=== PATIENT | female | born 1975 | race Caucasian/White ===

== ENCOUNTER 2016-06-25 20:47 | Observation (INO) | payer OTHER ==
--- NOTE | 2016-06-25 21:08 | UCPHY ---
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 She has been on clear liquid diet however the pain is persistently gotten worse. Loose stools no blood no diarrhea no vomiting. No fever. She denies chest pain or shortness of breath. She tells me this feels exactly the same way that when she had acute diverticulitis and was hospitalized for a few days a few years ago. currently pain is 6/10. Left lower quadrant. 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 Exam Constitutional triage nursing summary reviewed, vital signs reviewed, awake/ alert. Eyes normal conjunctivae and sclera, EOMI, PERRLA. HENT normal inspection, atraumatic, moist mucus membranes, no epistaxis, neck supple/ no meningismus, no raccoon eyes. Respiratory clear to auscultation bilaterally, normal breath sounds, no respiratory distress, no wheezing. Cardiovascular rate normal, regular rhythm, no murmur, no edema, distal pulses normal. Gastrointestinal mild tenderness to palpation left lower quadrant , no rebound , no guarding, normal bowel sounds, no distension, no pulsatile mass. Genitourinary no CVA tenderness. Musculoskeletal no midline vertebral tenderness, full range of motion, no calf swelling, no tenderness of extremities, no meningismus, good pulses, neurovascularly intact. Skin pink, warm, & dry, no rash, skin atraumatic. Neurologic awake, alert and oriented x 3, AAOx3, moves all 4 extremities equally, motor intact, sensory intact, CN II-XII intact, normal cerebellar, normal vision, normal speech. Psychiatric normal mood/affect. Heme/Lymph/Immune no lymphadenopathy. Differential diagnosis includes but is not limited to and in no particular order : Bowel obstruction, appendicitis, gallbladder disease, diverticulitis, colitis , enteritis, perforated viscus, gastritis, GERD, esophagitis, urinary tract infection, pyelonephritis, kidney stones Medical Decision Making: plan for this patient IV will be established, patient received IV fluid bolus 1 L normal saline, check blood work including abdominal labs lactic acid, i-STAT creatinine, patient need a CT scan abdomen pelvis with IV contrast rule out acute diverticulitis, colitis. Re-evaluation: 2241: re-evaluated this patient this time she is resting comfortably I went over CT results with her shows acute diverticulitis. There is no micro perforation there is no abscess, is not as large as last episode of diverticulitis. After further discussion with the patient she would feel more comfortable with IV fluids bowel rest and being admitted to the hospital overnight for acute diverticulitis. She does understand she has uncomplicated diverticulitis I did offer her to go home however she is not comfortable this plan. 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 She does not have perforation. Plan is to admit her hospitalist service acute diverticulitis bowel rest private vehicle transport. Patient has been accepted by Dr. Smith the hospitalist service. Patient to go to room [facility]. [address] [place] [address]. She will be going by private vehicle. No IV antibiotics were given during this visit she will get antibiotics upon arrival. Dr. Smith to be paged when patient arrives. Source: Patient - Medical/Surgical History Hx Asthma: No Hx Chronic Respiratory Disease: No Hx Diabetes: No Hx Cardiac Disease: No Hx Renal Disease: No Hx Cirrhosis: No Hx Alcoholism: No Hx HIV/AIDS: No Hx Splenectomy or Spleen Trauma: No Other PMH: C-SECT X3 - Family History Significant Family History: No pertinent family hx - Social History Smoking Status: Never smoked Constitutional: Initial Vital Signs Temperature (C) 36.6 C 06/25/16 21:00 Heart Rate 77 06/25/16 21:00 Respiratory Rate 16 06/25/16 21:00 Blood Pressure 127/50 H 06/25/16 21:00 O2 Sat (%) 99 06/25/16 21:00 O2 Delivery Mode Room Air Allergies/Adverse Reactions: Sulfa (Sulfonamide Antibiotics) Allergy (Unknown, Verified 06/25/16 21:33) Home Medications: Medication Instructions Recorded NK [No Known Home Meds] 06/25/16 Medical Decision Making - Data Points Laboratory Results: Laboratory Results 06/25/16 21:20 06/25/16 21:20 06/25/16 06/25/16 06/25/16 22:05 22:05 21:25 WBC RBC Hgb POC Hgb Hct POC Hct MCV MCH MCHC RDW Plt Count MPV Neut % (Auto) Lymph % (Auto) Harvey % (Auto) Eos % (Auto) Baso % (Auto) Nucleat RBC Rel Count Absolute Neuts (auto) Absolute Lymphs (auto) Absolute Monos (auto) Absolute Eos (auto) Absolute Basos (auto) Absolute Nucleated RBC Immature Gran % Immature Gran # PT 13.1 SEC SEC (12.0-15.0) INR 1.02 (0.83-1.16) APTT 30.1 SEC SEC (23.0-38.0) VBG Lactic Acid 0.6 mmol/L L mmol/L (0.7-2.1) POC Sodium Sodium POC Potassium Potassium POC Chloride Chloride Carbon Dioxide Anion Gap POC BUN BUN Creatinine POC Creatinine Estimated GFR Glucose POC Glucose Calcium Total Bilirubin Conjugated Bilirubin Unconjugated Bilirubin AST ALT Alkaline Phosphatase Total Protein Albumin Lipase Beta HCG, Qual Urine Color PALE YELLOW Urine Appearance CLEAR Urine pH 5.5 (5.0-7.5) Ur Specific Cromwell <= 1.005 (1.002-1.030) Urine Protein NEGATIVE (NEGATIVE) Urine Ketones NEGATIVE (NEGATIVE) Urine Blood TRACE H (NEGATIVE) Urine Nitrate NEGATIVE (NEGATIVE) Urine Bilirubin NEGATIVE (NEGATIVE) Urine Urobilinogen 0.2 EU EU (0.2-1.0) Ur Leukocyte Esterase NEGATIVE (NEGATIVE) Urine RBC OCCASIONAL /hpf /hpf (0-3) Urine WBC NONE SEEN /hpf /hpf (0-3) Ur Epithelial Cells TRACE /lpf /lpf (NONE-1+) Ur Culture Indicated? NOT INDICATED (NI) Urine Glucose NEGATIVE (NEGATIVE) 06/25/16 06/25/16 06/25/16 21:20 21:20 21:20 WBC RBC Hgb POC Hgb 14.6 gm/dL gm/dL (12.3-15.9) Hct POC Hct 43 % % (35.5-47.5) MCV MCH MCHC RDW Plt Count MPV Neut % (Auto) Lymph % (Auto) Harvey % (Auto) Eos % (Auto) Baso % (Auto) Nucleat RBC Rel Count Absolute Neuts (auto) Absolute Lymphs (auto) Absolute Monos (auto) Absolute Eos (auto) Absolute Basos (auto) Absolute Nucleated RBC Immature Gran % Immature Gran # PT INR APTT VBG Lactic Acid POC Sodium 141 mEq/L mEq/L (134-144) Sodium 140 mEq/L mEq/L (134-144) POC Potassium 3.6 mEq/L mEq/L (3.3-5.0) Potassium 3.7 mEq/L mEq/L (3.5-5.2) POC Chloride 103 mEq/L mEq/L (96-108) Chloride 100 mEq/L mEq/L (97-110) Carbon Dioxide 24 mEq/l mEq/l (22-31) Anion Gap 16 mEq/L mEq/L (8-16) POC BUN 10 mg/dL mg/dL (7-23) BUN 11 mg/dL mg/dL (7-23) Creatinine 0.8 mg/dL mg/dL (0.6-1.0) POC Creatinine 0.8 mg/dL mg/dL (0.6-1.2) Estimated GFR > 60 Glucose 90 mg/dL mg/dL (70-100) POC Glucose 94 mg/dL mg/dL (70-100) Calcium 9.5 mg/dL mg/dL (8.5-10.4) Total Bilirubin 0.7 mg/dL mg/dL (0.1-1.4) Conjugated Bilirubin 0.2 mg/dL mg/dL (0.0-0.5) Unconjugated Bilirubin 0.5 mg/dL mg/dL (0.0-1.1) AST 20 IU/L IU/L (14-46) ALT 28 IU/L IU/L (9-52) Alkaline Phosphatase 58 IU/L IU/L (38-126) Total Protein 7.2 g/dL g/dL (6.3-8.2) Albumin 4.4 g/dL g/dL (3.5-5.0) Lipase 62.0 IU/L IU/L (23-300) Beta HCG, Qual NEGATIVE Urine Color Urine Appearance Urine pH Ur Specific Cromwell Urine Protein Urine Ketones Urine Blood Urine Nitrate Urine Bilirubin Urine Urobilinogen Ur Leukocyte Esterase Urine RBC Urine WBC Ur Epithelial Cells Ur Culture Indicated? Urine Glucose 06/25/16 21:20 WBC 7.78 10^3/uL 10^3/uL (3.80-9.50) RBC 4.48 10^6/uL 10^6/uL (4.18-5.33) Hgb 14.1 g/dL g/dL (12.6-16.3) POC Hgb Hct 40.6 % % (38.0-47.0) POC Hct MCV 90.6 fL fL (81.5-99.8) MCH 31.5 pg pg (27.9-34.1) MCHC 34.7 g/dL g/dL (32.4-36.7) RDW 12.9 % % (11.5-15.2) Plt Count 203 10^3/uL 10^3/uL (150-400) MPV 9.6 fL fL (8.7-11.7) Neut % (Auto) 68.1 % % (39.3-74.2) Lymph % (Auto) 21.9 % % (15.0-45.0) Harvey % (Auto) 7.2 % % (4.5-13.0) Eos % (Auto) 2.2 % % (0.6-7.6) Baso % (Auto) 0.3 % % (0.3-1.7) Nucleat RBC Rel Count 0.0 % % (0.0-0.2) Absolute Neuts (auto) 5.31 10^3/uL 10^3/uL (1.70-6.50) Absolute Lymphs (auto) 1.70 10^3/uL 10^3/uL (1.00-3.00) Absolute Monos (auto) 0.56 10^3/uL 10^3/uL (0.30-0.80) Absolute Eos (auto) 0.17 10^3/uL 10^3/uL (0.03-0.40) Absolute Basos (auto) 0.02 10^3/uL 10^3/uL (0.02-0.10) Absolute Nucleated RBC 0.00 10^3/uL 10^3/uL (0-0.01) Immature Gran % 0.3 % % (0.0-1.1) Immature Gran # 0.02 10^3/uL 10^3/uL (0.00-0.10) PT INR APTT VBG Lactic Acid POC Sodium Sodium POC Potassium Potassium POC Chloride Chloride Carbon Dioxide Anion Gap POC BUN BUN Creatinine POC Creatinine Estimated GFR Glucose POC Glucose Calcium Total Bilirubin Conjugated Bilirubin Unconjugated Bilirubin AST ALT Alkaline Phosphatase Total Protein Albumin Lipase Beta HCG, Qual Urine Color Urine Appearance Urine pH Ur Specific Cromwell Urine Protein Urine Ketones Urine Blood Urine Nitrate Urine Bilirubin Urine Urobilinogen Ur Leukocyte Esterase Urine RBC Urine WBC Ur Epithelial Cells Ur Culture Indicated? Urine Glucose Point of Care Test Results: 06/25/16 21:20 POC Sodium 141 POC Potassium 3.6 POC Chloride 103 POC BUN 10 POC Creatinine 0.8 POC Glucose 94 Departure - Departure Disposition: [facility] Inpatient Acute Clinical Impression: Acute diverticulitis Condition: Fair Additional Instructions: 1. Go directly to [facility]. Do not go home. 2. You have a room reserve the [facility] his room 157. Please check in up front Referrals: Suha Reynolds MD [Primary Care Provider] - As per Instructions - PQRS PQRS Measurement: n/a
[2016-06-25] MEDS ORDERED: NS 1,000 ML IV ONE (21:09)
[2016-06-25] MEDS ORDERED: IOPAMIDOL (ISOVUE-300) 100 ML BTL IV ONE (21:21)
[2016-06-25 21:26] LABS: % IMMATURE GRANULYOCYTES 0.3 % (0.0-1.1); ABSOLUTE IMMATURE GRANULOCYTES 0.02 10^3/uL (0.00-0.10); ADD DIFF? NO; ADD MORPH? NO; ADD SCAN? NO; ATYPICAL LYMPHOCYTE FLAG 10 (0-99); FRAGMENT RBC FLAG 0 (0-99); HEMATOCRIT 40.6 % (38.0-47.0); HEMOGLOBIN 14.1 g/dL (12.6-16.3); LEFT SHIFT FLG 0 (0-99); LIPEMIA HEMOLYSIS FLAG 90 (0-99); MEAN CELL HEMOGLOBIN 31.5 pg (27.9-34.1); MEAN CELL HEMOGLOBIN CONCENTR. 34.7 g/dL (32.4-36.7); MEAN CELL VOLUME 90.6 fL (81.5-99.8); MEAN PLATELET VOLUME 9.6 fL (8.7-11.7); PLATELET CLUMPS FLAG 0 (0-99); PLATELET COUNT 203 10^3/uL (150-400); RED BLOOD CELL COUNT 4.48 10^6/uL (4.18-5.33); RED CELL DISTRIBUTION WIDTH 12.9 % (11.5-15.2)
[2016-06-25 21:32] LABS: LEUKOCYTE ESTERASE,URINE NEGATIVE (NEGATIVE); NITRITE,URINE NEGATIVE (NEGATIVE); PH,URINE 5.5 (5.0-7.5)
[2016-06-25 21:33] LABS: COLOR PALE YELLOW
[2016-06-25 21:39] LABS: RBC,URINE OCCASIONAL /hpf (0-3); WBC,URINE NONE SEEN /hpf (0-3)
[2016-06-25 21:42] LABS: ALANINE AMINOTRANSFERASE 28 IU/L (9-52); ALBUMIN 4.4 g/dL (3.5-5.0); ALKALINE PHOSPHATASE 58 IU/L (38-126); ANION GAP 16 mEq/L (8-16); ASPARTATE AMINOTRANSFERASE 20 IU/L (14-46); BILIRUBIN,TOTAL 0.7 mg/dL (0.1-1.4); BILIRUBIN-CONJUGATED 0.2 mg/dL (0.0-0.5); BILIRUBIN-UNCONJUGATED 0.5 mg/dL (0.0-1.1); CALCIUM 9.5 mg/dL (8.5-10.4); CARBON DIOXIDE 24 mEq/l (22-31); CHLORIDE 100 mEq/L (97-110); CREATININE 0.8 mg/dL (0.6-1.0); GLOMERULAR FILTRATION RATE > 60; GLUCOSE 90 mg/dL (70-100); POTASSIUM 3.7 mEq/L (3.5-5.2); SODIUM 140 mEq/L (134-144); TOTAL PROTEIN 7.2 g/dL (6.3-8.2)
[2016-06-25 22:18] LABS: INR 1.02 (0.83-1.16); PROTIME(PATIENT) 13.1 SEC (12.0-15.0)
[2016-06-25 22:19] LABS: APTT 30.1 SEC (23.0-38.0)
[2016-06-25] MEDS ORDERED: CIPROFLOXACIN 400 MG/DEXTROSE 200 ML IV ONE (22:42)
[2016-06-25] MEDS ORDERED: ONDANSETRON 4 MG/2 ML VIAL IVP PRN (23:53)
[2016-06-25] MEDS ORDERED: HYDROmorphONE/DILAUDID 1 MG/ML SYR IVP PRN (23:53)
[2016-06-25] MEDS ORDERED: ACETAMINOPHEN 325 MG TAB PO PRN (23:53)
[2016-06-25] MEDS ORDERED: ONDANSETRON DISINTEGRATING 4 MG TAB PO PRN (23:53)
[2016-06-26] MEDS: ERTAPENEM 1 GM in NS 100 ML IV SCH ×2 (00:28→13:04)
--- NOTE | 2016-06-26 00:33 | GHP ---
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 She presented to Urgent Care. She had a prev ious episode of descending colon and sigmoid diverticulitis in 2013. It was not complicated with ab scess or perforation. It required a couple of nights in the hospital. She had similar symptoms. She had subsequent colonoscopy, which showed diverticula of the sigmoid and descending colon. She h as a family history of diverticulitis, as well. She said she eats a lot of vegetables, takes Metamucil daily. She has normal bowel movements. She had a small bowel movement today. She has not had fever or chills. She has had left lower quadrant pain. She thought it would get better, but it did not and so she sought care. She drove herself o maty here today. She has had no nausea or vomiting. No cough, no sputum. No nausea, vomiting, diar katharine. REVIEW OF SYSTEMS: Complete 10-point review of systems conducted, negative except as noted in the H PI. PAST MEDICAL HISTORY: 1. Diverticulitis. 2. She has had x2 with 2 healthy children. 3. She had some superficial phlebitis during her pregnancies. ALLERGIES: Sulfa. MEDICATIONS: At home none. 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 Rare alcohol. No tobacco. She has 3 children. FAMILY HISTORY: Notable for her father over the summer of brain cancer. Her mother's family h as Alzheimer and diverticulitis as mentioned. PHYSICAL EXAM: VITAL SIGNS: Temp 36.6, blood pressure 127/50, pulse 77, breathing 16 times a minut e, 99% on room air. GENERAL: No acute distress. HEENT: Sclerae anicteric. Oropharynx clear. Mu cous membranes moist. NECK: Supple. No lymphadenopathy or JVD. LUNGS: Clear to auscultation elicia aterally. HEART: S1, S2. ABDOMEN: Soft. There is some left lower quadrant tenderness. There is a bit of left lower quadrant sensation. When I shake the bed, there are hypoactive bowel sounds. There is no guarding. EXTREMITIES: Calves are nontender. SKIN: Without rash. LOWER EXTREMITIES: Without edema. NEUROLOGIC: Nonfocal. LABORATORY DATA: White count 7.8, hematocrit 40, platelets are 203,000. INR is 1. Venous lactate is 0.6, sodium 140, potassium 3.7, chloride 100, bicarb 24, BUN 11, creatinine 0.8. LFTs normal. B eta HCG normal. Lipase normal. UA is unremarkable. CT images reviewed and interpreted by me, show s sigmoid diverticulitis without free air or abscess. I have discussed the case with . ASSESSMENT AND PLAN: A 41-year-old female with second episode of diverticulitis. 1. Diverticulitis. This appears to be uncomplicated on the basis of physical exam and CAT scan, al though on her exam does have possibly some rebound. We will follow for now, give her IV fluids, larissa ar liquid diet, and ertapenem. Cipro was ordered in Urgent Care, but not given. I will call Geoffrey Bolton in the morning to see her regarding consideration of possible elective surgery. 2. Abdominal pain. Will give her some IV narcotics. 3. Prophylaxis. Given her history of superficial thrombophlebitis venous thromboembolism prophylax is is indicated. 4. Disposition. Inpatient status. I anticipate greater than 2 midnights. /[id number]/MODL
[2016-06-26 04:57] LABS: % IMMATURE GRANULYOCYTES 0.2 % (0.0-1.1); ABSOLUTE IMMATURE GRANULOCYTES 0.01 10^3/uL (0.00-0.10); ADD DIFF? NO; ADD MORPH? NO; ADD SCAN? NO; ATYPICAL LYMPHOCYTE FLAG 10 (0-99); FRAGMENT RBC FLAG 0 (0-99); HEMATOCRIT 38.1 % (38.0-47.0); HEMOGLOBIN 12.9 g/dL (12.6-16.3); LEFT SHIFT FLG 0 (0-99); LIPEMIA HEMOLYSIS FLAG 90 (0-99); MEAN CELL HEMOGLOBIN 31.6 pg (27.9-34.1); MEAN CELL HEMOGLOBIN CONCENTR. 33.9 g/dL (32.4-36.7); MEAN CELL VOLUME 93.4 fL (81.5-99.8); MEAN PLATELET VOLUME 9.9 fL (8.7-11.7); PLATELET CLUMPS FLAG 0 (0-99); PLATELET COUNT 173 10^3/uL (150-400); RED BLOOD CELL COUNT 4.08 10^6/uL (4.18-5.33); RED CELL DISTRIBUTION WIDTH 12.7 % (11.5-15.2)
[2016-06-26 05:27] LABS: ANION GAP 6 mEq/L (8-16); CALCIUM 8.6 mg/dL (8.5-10.4); CARBON DIOXIDE 24 mEq/l (22-31); CHLORIDE 111 mEq/L (97-110); CREATININE 0.7 mg/dL (0.6-1.0); GLOMERULAR FILTRATION RATE > 60; GLUCOSE 89 mg/dL (70-100); POTASSIUM 4.1 mEq/L (3.5-5.2); SODIUM 141 mEq/L (134-144)
[2016-06-26] MEDS: NS 1,000 ML IV SCH ×2 (07:14→10:15)
[2016-06-26] MEDS ORDERED: ENOXAPARIN 40 MG/0.4 ML SYR SC SCH (09:00)
--- NOTE | 2016-06-26 15:31 | SOAPPROG ---
SOAP Progress Note Assessment/Plan: Assessment/Plan: 41 Y F with second episode of diverticulitis. Full consult note to follow. Continue IV antibiotics and clear liquid diet. No fever or WBC elevation. +pain, controlled. Will continue to observe. Optimistic that she will improve with antibiotics. Due to recurrence and age recommend eventual lap assisted sigmoid colectomy. We discussed this bedside today with her mother present. 06/26/16 15:28 Objective: Vital Signs Temp Pulse Resp BP Pulse Ox 36.6 C 68 16 93/57 L 96 06/26/16 12:26 06/26/16 12:26 06/26/16 12:26 06/26/16 12:26 06/26/16 12:26 Laboratory Results 06/26/16 04:48 06/26/16 04:48 06/25/16 06/26/16 06/27/16 05:59 05:59 05:59 Intake Total 1250 1500 Output Total 550 2400 Balance 700 -900 PT 13.1 SEC (12.0-15.0) 06/25/16 22:05 INR 1.02 (0.83-1.16) 06/25/16 22:05 ICD10 Worksheet Patient Problems: Problems Problem Status Onset Acute diverticulitis Acute Diverticulitis large intestine Acute
[2016-06-26] MEDS ORDERED: IBUPROFEN 200 MG TAB PO PRN (16:03)
[2016-06-26 16:29] VITALS: TEMP 97.7
--- NOTE | 2016-06-26 17:44 | PDDCSUM ---
Discharge Summary Discharge Summary: DISCHARGE SUMMARY FOLLOW-UP ITEMS: Schedule outpatient surgical follow-up DATE OF ADMISSION: 06/25/2016 DATE OF DISCHARGE: 06/26/2016 DISCHARGE DIAGNOSES: 1. Acute diverticulitis CONSULTATIONS: General surgery by Dr. Bolton PROCEDURES / IMAGING: CT of the abdomen demonstrating distal descending colon and sigmoid diverticulitis without abscess formation CHIEF COMPLAINT: Acute abdominal pain SUBJECTIVE: Abdominal pain has significantly improved, patient is able to ambulate without any discomfort PHYSICAL EXAM ON DISCHARGE: Systolic blood pressure 1/20, heart rate 60, afebrile overnight, satting well on room air, abdomen is soft and only mildly tender in the left lower quadrant without any guarding, bowel sounds are present, heart regular rhythm and regular rate, lungs are clear to auscultation bilaterally LABS ON DISCHARGE: Blood cell count 5300, hemoglobin 12.9, creatinine 0.7, liver panel unremarkable , lactic acid normal, urinalysis unremarkable, potassium 4.1 HOSPITAL COURSE BY PROBLEM: 1. Acute diverticulitis. Evidenced by distal descending colon inflammation and no evidence of abscess on CT imaging with associated left lower quadrant pain. Patient received IV fluids, was made NPO, received IV antibiotics, received IV pain medications. She clinically improved and was tolerating bland oral solid diet at time of discharge. She was ambulating without any pain. She was seen in consultation by General surgery who recommended outpatient comma elective lap partial colectomy once her condition improves. She received 2 days of IV antibiotics. She is being discharged home on 8 subsequent days of oral antibiotics to complete a total of 10 days of therapy, with as needed pain and antiemetic oral medications. DISCHARGE MEDICATIONS: Please see official discharge medication reconciliation sheet in chart , ciprofloxacin 500 mg twice daily x8 days, metronidazole 500 mg q.8 hours x8 days , oxycodone immediate release 5-10 mg as needed, 20 tablets prescribed, Zofran 4 mg as needed, 20 tablets prescribed. DISCHARGE INSTRUCTIONS: Patient should follow up with Dr. Reynolds within 3-[address] Bolton in approximately 2 weeks. If patient experiences recurrent pain, I have advised her to deescalate her diet. TIME SPENT: Greater than 30 minutes were spent on direct patient care, as well as discharge planning and preparation. The patient clinically improved much more rapidly than was initially anticipated by her admitting provider, secondary to highly efficient expeditious care provided by her nursing staff, surgery consultants, and hospitalist team. Her condition has improved and she is currently medically safe for discharge.
[2016-06-26 19:30] VITALS: BP 117/71; PULSE 68; RESP 17; O2SAT 100
--- NOTE | 2016-06-26 23:06 | GCON ---
[f rep st] CONSULTATION GENERAL SURGERY CONSULTATION REASON FOR CONSULTATION: Acute diverticulitis. 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 She was seen prior to this, and was put on oral antibiotic therapy. DICTATION ENDS HERE /[id number]/MODL
[2016-06-27] MEDS ORDERED: MULTIVITAMINS 1 EACH TAB PO SCH (09:00)
[2016-06-27] MEDS ORDERED: Herbals/Supplements -Info Only PO SCH (09:00)
== END 2016-06-26 20:50 | disposition home or self-care (01) ==
LOC: CED 20:47 → INTOOBSV 22:47 → CEDHOLD 22:47 → F1N 23:33
PROVIDERS: ADMIT Internal Medicine; ATTEND Internal Medicine
DX: K57.32 Diverticulitis of large intestine without perforation or abscess without bleeding (principal); R10.32 Left lower quadrant pain
CPT/HCPCS: 74177; 96360; 99213; G0378; 80048-PO; 80076-PO; 81003-PO; 81015-PO; 82947-QW; 83605-PO; 83690-PO; 84703-PO; 85025-PO; 85610-PO; 85730-PO; G0463-PO; J1170; J1335; J1650; J2405; Q9967

== ENCOUNTER → 2017-05-28 | Outpatient (CLI) | payer OTHER | LOC: FIMAGING 12:08 | PROVIDERS: ATTEND Family Medicine | DX: Z12.31 Encounter for screening mammogram for malignant neoplasm of breast (principal) ==

== ENCOUNTER 2018-09-09 16:17 | Emergency (ER) | payer OTHER | END 2018-09-09 19:19 | disposition home or self-care (01) ==